=== PATIENT | female | born 1980 | race Caucasian/White ===

== ENCOUNTER 2018-02-23 17:43 | Emergency (ER) | payer MEDICAID ==
[~2018-02-23] VITALS: Ht 162.6 cm; Wt 103.2 kg
[2018-02-23 18:50] LABS: RAPID INFLUENZA A Negative (Negative); RAPID INFLUENZA B Negative (Negative)
[2018-02-23 19:16] VITALS: BP 160/88
== END 2018-02-23 19:28 | disposition home or self-care (01) ==
LOC: ED 19:20
DX: J01.00 Acute maxillary sinusitis, unspecified (principal); H92.03 Otalgia, bilateral
CPT/HCPCS: 87400; 99283